=== PATIENT | male | born 1940 | race Caucasian/White ===

== ENCOUNTER 2020-06-23 14:02 | Inpatient (IN) ==
[2020-06-24] MEDS ORDERED: Albuterol 2.5 MG/3 ML NEBULIZER IH PRN (00:54)
[2020-06-24] MEDS ORDERED: NON-FORMULARY MEDICATION 1 EACH EACH (Alendronate Sodium [Fosamax] 70 MG) PO SCH (01:00)
[2020-06-24] MEDS: Albuterol 2.5 MG/3 ML NEBULIZER IH SCH ×6 (04:41→23:38)
[2020-06-24] MEDS ORDERED: Acetylcysteine 10% 2 ML INHSOL IH SCH (08:00)
[2020-06-24] MEDS: Multivit/Ca/Min/Fe/FA 1 TAB TABLET PO SCH (08:32)
[2020-06-24] MEDS: amLODIPine 5 MG TABLET PO SCH (08:32)
[2020-06-24] MEDS ORDERED: Acetylcysteine 10% 10 ML VIAL IH SCH (08:45)
[2020-06-24] MEDS ORDERED: Aspirin 325 MG TABLET PO SCH (09:00)
[2020-06-24] MEDS: Acetylcysteine 10% 10 ML VIAL IH SCH ×4 (11:08→23:38)
[2020-06-24] MEDS: Budesonide/Formoterol 160/4.5 1 PUFF INH IH SCH (23:29)
[2020-06-25] MEDS: predniSONE 20 MG TABLET PO SCH ×2 (00:18→07:58)
[2020-06-25] MEDS: Acetylcysteine 10% 10 ML VIAL IH SCH ×4 (04:18→15:02)
[2020-06-25] MEDS: Albuterol 2.5 MG/3 ML NEBULIZER IH SCH ×5 (04:18→20:35)
[2020-06-25] MEDS: *HR* Enoxaparin 40 MG/0.4 ML SYRINGE SQ SCH (05:50)
[2020-06-25 06:43] LABS: Hematocrit 35.1 % (37.5-50.1); Hemoglobin 11.6 g/dL (12.9-16.9); Mean Corpuscular Hemoglobin 30.6 pg (28.0-33.3); Mean Corpuscular Volume 92.6 fL (83.0-100.0); Platelet Count 201 K/mcL (140-400); Red Blood Count 3.79 M/mcL (4.19-5.50); Red Cell Distribution Width 15.8 % (11.5-14.5); White Blood Count 10.8 K/mcL (4.3-11.1)
[2020-06-25 07:01] LABS: BUN/Creatinine Ratio 37 (6-26); Blood Urea Nitrogen 29 mg/dL (8-23); Calcium 7.7 mg/dL (8.6-10.3); Carbon Dioxide 29 mEq/L (23-29); Chloride 102 mEq/L (98-107); Glucose 201 mg/dL (70-105); Magnesium 1.9 mg/dL (1.6-2.6); Osmolality,Calculated 298 (280-300); Potassium 4.1 mEq/L (3.5-5.1); Sodium 138 mEq/L (136-145); eGFR For African Americans > 60 (> 60); eGFR For Non-African Americans > 60 (> 60)
[2020-06-25] MEDS: Multivit/Ca/Min/Fe/FA 1 TAB TABLET PO SCH (07:58)
[2020-06-25] MEDS: Aspirin Enteric Coated 81 MG Tablet PO SCH (07:58)
[2020-06-25] MEDS: amLODIPine 5 MG TABLET PO SCH (07:59)
[2020-06-25] MEDS: Budesonide/Formoterol 160/4.5 1 PUFF INH IH SCH ×2 (08:29→20:39)
[2020-06-25] MEDS: Acetylcysteine 10% 2 ML INHSOL IH SCH (20:35)
[2020-06-26] MEDS: Acetylcysteine 10% 2 ML INHSOL IH SCH ×6 (00:37→21:10)
[2020-06-26] MEDS: Albuterol 2.5 MG/3 ML NEBULIZER IH SCH ×6 (00:37→21:05)
[2020-06-26] MEDS: *HR* Enoxaparin 40 MG/0.4 ML SYRINGE SQ SCH (06:15)
[2020-06-26] MEDS: Budesonide/Formoterol 160/4.5 1 PUFF INH IH SCH ×2 (08:05→21:25)
[2020-06-26] MEDS: predniSONE 20 MG TABLET PO SCH (09:35)
[2020-06-26] MEDS: Aspirin Enteric Coated 81 MG Tablet PO SCH (09:35)
[2020-06-26] MEDS: Multivit/Ca/Min/Fe/FA 1 TAB TABLET PO SCH (09:35)
[2020-06-26] MEDS: amLODIPine 5 MG TABLET PO SCH (09:35)
[2020-06-26] MEDS ORDERED: Acetylcysteine 10% 10 ML VIAL ONE (21:01)
[2020-06-27] MEDS: Albuterol 2.5 MG/3 ML NEBULIZER IH SCH ×7 (00:57→23:46)
[2020-06-27] MEDS: Acetylcysteine 10% 2 ML INHSOL IH SCH ×7 (00:57→23:49)
[2020-06-27] MEDS: *HR* Enoxaparin 40 MG/0.4 ML SYRINGE SQ SCH (05:39)
[2020-06-27] MEDS: amLODIPine 5 MG TABLET PO SCH (09:06)
[2020-06-27] MEDS: Aspirin Enteric Coated 81 MG Tablet PO SCH (09:07)
[2020-06-27] MEDS: predniSONE 20 MG TABLET PO SCH (09:07)
[2020-06-27] MEDS: Multivit/Ca/Min/Fe/FA 1 TAB TABLET PO SCH (09:07)
[2020-06-27] MEDS: Budesonide/Formoterol 160/4.5 1 PUFF INH IH SCH ×2 (12:36→20:35)
[2020-06-27] MEDS: *HR* OxyCODONE Immed Rel 5 MG TABLET PO PRN (18:47)
[2020-06-28] MEDS: Acetylcysteine 10% 2 ML INHSOL IH SCH ×6 (04:00→23:08)
[2020-06-28] MEDS: Albuterol 2.5 MG/3 ML NEBULIZER IH SCH ×6 (04:00→23:08)
[2020-06-28] MEDS: *HR* Enoxaparin 40 MG/0.4 ML SYRINGE SQ SCH (05:47)
[2020-06-28 07:09] LABS: Hematocrit 35.7 % (37.5-50.1); Hemoglobin 12.1 g/dL (12.9-16.9); Mean Corpuscular HGB Conc 33.9 g/dL (31.6-35.5); Mean Corpuscular Hemoglobin 31.6 pg (28.0-33.3); Mean Corpuscular Volume 93.2 fL (83.0-100.0); Mean Platelet Volume 11.1 fL (9.4-12.4); Platelet Count 196 K/mcL (140-400); Red Blood Count 3.83 M/mcL (4.19-5.50); Red Cell Distribution Width 16.2 % (11.5-14.5); White Blood Count 18.1 K/mcL (4.3-11.1)
[2020-06-28 07:21] LABS: BUN/Creatinine Ratio 29 (6-26); Blood Urea Nitrogen 23 mg/dL (8-23); Calcium 8.2 mg/dL (8.6-10.3); Carbon Dioxide 34 mEq/L (23-29); Chloride 100 mEq/L (98-107); Glucose 147 mg/dL (70-105); Osmolality,Calculated 292 (280-300); Potassium 4.2 mEq/L (3.5-5.1); Sodium 138 mEq/L (136-145); eGFR For African Americans > 60 (> 60); eGFR For Non-African Americans > 60 (> 60)
[2020-06-28] MEDS: *HR* OxyCODONE Immed Rel 5 MG TABLET PO PRN (07:54)
[2020-06-28] MEDS: Multivit/Ca/Min/Fe/FA 1 TAB TABLET PO SCH (07:54)
[2020-06-28] MEDS: predniSONE 20 MG TABLET PO SCH (07:55)
[2020-06-28] MEDS: amLODIPine 5 MG TABLET PO SCH (07:55)
[2020-06-28] MEDS: Aspirin Enteric Coated 81 MG Tablet PO SCH (07:55)
[2020-06-28] MEDS: Budesonide/Formoterol 160/4.5 1 PUFF INH IH SCH ×2 (10:21→20:22)
[2020-06-28] MEDS ORDERED: Ondansetron ODT 4 MG TAB.RAPDIS SL PRN (16:17)
[2020-06-28] MEDS: 0.9 % Sodium Chloride 1,000 ML IVC SCH (20:35)
[2020-06-28] MEDS ORDERED: Naloxone 0.4 MG/ML INJ IVP PRN (21:01)
[2020-06-28] MEDS: Piperacillin/Tazobactam 3.375 GM in 0.9 % Sodium Chloride Mini Bag 100 ML IVPB SCH (23:34)
[2020-06-29] MEDS: Acetylcysteine 10% 2 ML INHSOL IH SCH ×3 (04:47→11:17)
[2020-06-29] MEDS: Albuterol 2.5 MG/3 ML NEBULIZER IH SCH ×3 (04:47→11:11)
[2020-06-29] MEDS: *HR* Enoxaparin 40 MG/0.4 ML SYRINGE SQ SCH (05:14)
[2020-06-29] MEDS: Budesonide/Formoterol 160/4.5 1 PUFF INH IH SCH (07:43)
[2020-06-29] MEDS ORDERED: 0.9 % Sodium Chloride 250 ML IVC ONE ×2 (07:48→10:10)
[2020-06-29] MEDS ORDERED: Isovue-370 500 ML BOTTLE IVP ONE (07:58)
[2020-06-29 08:04] LABS: Basophils % 0.1 %; Eosinophils % 10.6 %; Hematocrit 39.3 % (37.5-50.1); Hemoglobin 13.1 g/dL (12.9-16.9); Immature Granulocytes % 0.9 % (0-4); Lymphocytes # 0.9 K/mcL (0.6-4.6); Lymphocytes % 2.3 %; Mean Corpuscular HGB Conc 33.3 g/dL (31.6-35.5); Mean Corpuscular Hemoglobin 31.4 pg (28.0-33.3); Mean Corpuscular Volume 94.2 fL (83.0-100.0); Mean Platelet Volume 11.1 fL (9.4-12.4); Monocytes # 3.9 K/mcL (0.0-1.3); Monocytes % 10.3 %; Neutrophils # 28.9 K/mcL (1.6-8.9); Platelet Count 248 K/mcL (140-400); Red Blood Count 4.17 M/mcL (4.19-5.50); Red Cell Distribution Width 16.8 % (11.5-14.5); Segmented Neutrophils % 75.8 %
[2020-06-29 08:16] LABS: White Blood Count 38.1 K/mcL (4.3-11.1)
[2020-06-29 08:25] LABS: BUN/Creatinine Ratio 25 (6-26); Blood Urea Nitrogen 22 mg/dL (8-23); Carbon Dioxide 31 mEq/L (23-29); Chloride 100 mEq/L (98-107); Glucose 145 mg/dL (70-105); Osmolality,Calculated 290 (280-300); Potassium 4.8 mEq/L (3.5-5.1); Sodium 137 mEq/L (136-145); eGFR For African Americans > 60 (> 60); eGFR For Non-African Americans > 60 (> 60)
[2020-06-29 08:39] LABS: Platelet Estimate Normal (Normal)
[2020-06-29] MEDS: Piperacillin/Tazobactam 3.375 GM in 0.9 % Sodium Chloride Mini Bag 100 ML IVPB SCH (08:46)
[2020-06-29] MEDS ORDERED: predniSONE 20 MG TABLET PO SCH (09:00)
[2020-06-29] MEDS: 0.9 % Sodium Chloride 1,000 ML IVC SCH (09:02)
[2020-06-29] MEDS: Aspirin Enteric Coated 81 MG Tablet PO SCH (09:03)
[2020-06-29] MEDS: amLODIPine 5 MG TABLET PO SCH (09:03)
[2020-06-29] MEDS: Multivit/Ca/Min/Fe/FA 1 TAB TABLET PO SCH (09:04)
[2020-06-29] MEDS ORDERED: Amiodarone Premix 360 MG/200 ML BAG IVC ONE (09:05)
[2020-06-29] MEDS ORDERED: Acetaminophen 325 MG TABLET PO PRN (09:12)
[2020-06-29] MEDS ORDERED: Acetaminophen 325 MG TABLET PO STA (09:28)
[2020-06-29] MEDS ORDERED: Acetaminophen 650 MG RECTAL SUPP RC ONE (09:38)
[2020-06-29] MEDS ORDERED: 0.9 % Sodium Chloride 250 ML ONE (10:10)
[2020-06-29] MEDS ORDERED: 0.9 % Sodium Chloride 250 ML IVC PRN (10:47)
[2020-06-29 11:20] VITALS: BP 90/55
[2020-06-29] MEDS ORDERED: Norepinephrine 4 MG/254 ML IV.SOLN IVC SCH (11:30)
== END 2020-06-29 13:30 | disposition short-term general hospital (02) | DRG 559 ==
LOC: INPPIK 23:46
PROVIDERS: ADMIT Family Medicine; ATTEND Family Medicine